=== PATIENT | male | born 1945 | race Caucasian/White ===

== ENCOUNTER 2021-04-10 05:16 | Emergency (ER) | payer OTHER ==
[~2021-04-10] VITALS: Ht 160 cm; Wt 72.6 kg
[2021-04-10] MEDS ORDERED: PEPCID AC20 MG PO (07:35)
[2021-04-10] MEDS ORDERED: SURFAK240 M1 PO (07:35)
[2021-04-10] MEDS ORDERED: PREPARATION H R28 GM RECTAL (07:35)
== END 2021-04-10 07:55 | disposition home or self-care (01) ==
LOC: ER 05:16
DX: K62.5 Hemorrhage of anus and rectum (principal); K64.9 Unspecified hemorrhoids; K59.00 Constipation, unspecified; R10.9 Unspecified abdominal pain; Z86.79 Personal history of other diseases of the circulatory system

== ENCOUNTER 2021-07-14 07:54 | Emergency (ER) | payer OTHER ==
[~2021-07-14] VITALS: Ht 170.2 cm; Wt 68.0 kg
[~2021-07-14 07:54] MED LIST: PEPCID AC20 MG PO; PREPARATION H R28 GM RECTAL; SURFAK240 M1 PO
[2021-07-14] MEDS ORDERED: ATORVASTATIN CA40 MG PO (08:01)
== END 2021-07-14 14:34 | disposition home or self-care (01) ==
LOC: ER 07:54
DX: F41.9 Anxiety disorder, unspecified (principal); I10 Essential (primary) hypertension

== ENCOUNTER 2022-01-20 11:59 | Emergency (ER) | payer OTHER ==
[~2022-01-20] VITALS: Ht 157.5 cm; Wt 68.0 kg
[~2022-01-20 11:59] MED LIST changes: +ATORVASTATIN CA40 MG PO
== END 2022-01-20 21:13 | disposition home or self-care (01) ==
LOC: ER 11:59
DX: K52.9 Noninfective gastroenteritis and colitis, unspecified (principal); Z20.822 Contact with and (suspected) exposure to COVID-19